=== PATIENT | female | born 1990 | race Hispanic/Latino ===

== ENCOUNTER 2022-12-17 23:14 | Emergency (ER) | payer OTHER ==
[~2022-12-17] VITALS: Ht 162.6 cm; Wt 85.7 kg
[2022-12-17] MEDS ORDERED: IBUPROFEN 400 MG TAB PO ONE (23:45)
[2022-12-18 00:20] VITALS: BP 138/82; PULSE 72; RESP 18; TEMP 98; O2SAT 99
[2022-12-18] MEDS ORDERED: IBUPROFEN 400 MG TAB ONE (00:20)
== END 2022-12-18 00:20 | disposition home or self-care (01) ==
LOC: FSED 23:21
DX: R07.89 Other chest pain (principal); M25.512 Pain in left shoulder; M54.2 Cervicalgia
CPT/HCPCS: 71046; 80048; 84484; 85025; 93005; 99284